=== PATIENT | female | born 1960 | race Caucasian/White ===

== ENCOUNTER 2018-05-30 10:04 | Observation (INO) | payer OTHER, SELFPAY ==
[2018-05-30] VITALS (14 sets, daily range): BP systolic 106–133; BP diastolic 59–76; PULSE 64–88; RESP 9–20; TEMP 36.2–36.9; O2SAT 91–99; BMI 20.2
--- NOTE | 2018-05-30 | PATH_ITS ---
[facility] Accession Number: [id number] . 01 Material submitted: . APPENDIX . 02 Diagnosis: Appendix, Appendectomy: Acute appendicitis with serositis. No evidence of neoplasia. V/06/03/2018 . 02 Electronically signed: . Mariza Davies MD, Pathologist NPI- [id number] . 01 Gross description: . Received in formalin is an intact appendix (length - 8.5 cm, diameter - up to 1.0 cm) with hudson, smooth, shiny, focally eroded serosa with attached mesoappendix (up to 1.2 cm in depth). The resection margin is received stapled. The lumen contains romo, solid, soft material. The wall is up to 0.2 cm thick. No nodules, masses or lesions are identified. The resection margin is inked black. Section code: (A1) resection margin en face and three additional serial sections; (A2) one-half of the bivalved tip. ([id number]) . /OZO . 02 Pathologist provided ICD-10: K35.80 . 02 CPT . 009894 Performed at: 01 [facility] [address], [place], [place] [id number] MD Lucas Salazar MD Phone: [phone] Performed at: 02 [facility] [address] [place], [place] [id number] MD Timo Brunner MD Phone: [phone]
--- NOTE | 2018-05-30 10:18 | PM.HP.1 ---
History of Present Illness Date Patient Seen: 05/30/18 Chief complaint: ACUTE APPENDECITIS Narrative: 57 you female transferred from [facility] with approximately 24 hour history of abdominal pain. Dr. Jairon Moctezuma called me at approximately 9:[address] scan showed dilated appendix, no perforation and fecalith with WBC per report of approximately 11k. She reports nausea and emesis. No blood in stool. She is otherwise healthy with h/o traumatic ptx from horse kick. 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 Lives alone with her 2 Danish shepherds on [facility]. She is very healthy, has no heart or vascular disease, walks everyday. Takes no meds except MVI daily. Patient History Family & Social History Family History: Reviewed 05/30/18 by Samy Salazar MD Review of Systems Review of Systems All systems reviewed & are unremarkable except as noted in HPI and below Exam Const General: cooperative, healthy appearing, comfortable, well developed and well groomed Nutritional Appearance: average body habitus, well nourished and thin HENMT Head: normal to inspection Ears: hearing grossly normal bilaterally Nose: external nose normal Face and sinus: normal facial exam Eyes General: appearance normal, both eyes and all related structures Sclera: sclerae normal Neck Neck: normal visual inspection Carotids: no bruits Chest Chest: normal inspection of the chest Resp Effort & Inspection: normal respiratory effort, able to speak in complete sentences, no audible wheezes and symmetric chest movement Auscultation: breath sounds present, no bronchial breath sounds, no rales, no rhonchi, no wheezes and no rubs Tactile Fremitus: tactile fremitus absent Cardio Rate: regular rate Heart Sounds: S1 normal, S2 normal, no click, no murmurs and no rubs GI Inspection: normal to inspection Percussion: abnormal to percussion (Pain to percussion in RLQ, Pain to percussino in RLQ with percussion on Left side. Tenderness to light palpation in RLQ none everywhere else, + focal peritoneal findings c/w appendicitis.) Other: deffered Back/Spine/Pelvis Back: normal to inspection Skin General: no rashes or lesions noted Neuro General: alert, awake and oriented x3 Cognition: normal cognition Speech: speech normal Motor: muscle tone normal throughout Extrem General: normal to inspection Right upper extremity: normal to inspection Left upper extremity: normal to inspection Right lower extremity: normal to inspection Left lower extremity: normal to inspection Psych Appearance: grossly normal Mental Status: mental status grossly normal Speech and Movement: speech and movement normal Mood: congruent mood Affect: normal affect Attitude: cooperative Thought Process: normal Thought Content: normal Judgment: judgment good Objective Imaging CT scan - abdomen: My impression: CT shows appendicolith >1cm multiple with fat stranding and enlarged appendix. Minimal if any free fluid. Radiologist's impression: T ABDOMEN PELVIS WO CONTRAST Clinical: RLQ Pain Comparison: None Procedure: Multislice CT imaging was performed. Exam was performed within [address] was performed with dose optimization techniques to lessen patient radiation exposure. Findings: ABDOMEN: Lung bases clear. Within limits noncontrast CT liver, spleen, pancreas, kidneys and adrenal glands normal. No abnormal gallbladder, bile duct, small bowel or aortic dilation. No upper abdominal free fluid. PELVIS: Appendix arises posteriorly at the cecal tip, proximal to mid appendix not distended. Appendix then courses retrocecally cephalad. Mid appendix to tip abnormally distended, 1.3 cm with multiple appendicoliths present, largest 1.3 cm maximum dimension. Mild adjacent fat stranding without focal fluid to indicate abscess. No dependent free fluid. Uterus size normal. No adnexal abnormalities. Bladder normal. Mildly abundant stool throughout colon without abnormal distention. No acute bone abnormality IMPRESSION: Acute appendicitis without abscess. Findings discussed with Dr. Moctezuma at 05/30/2018 9:02 AM Electronically signed by: Steve Agrawal MD 05/30/2018 9:02 AM, [facility]. Labs Labs: WBC 11k Otherwise overall normal, Assessment & Plan (1) Acute appendicitis with localized peritonitis: Current visit: Yes Status: Acute Plan: Assessment/Plan Narrative: The patient has acute appendicitis without perforation or localized abscess. I discussed extensively with diagrams drawn the back of the paper consent form a copy of which was provided to the patient if she signed and dated the laparoscopic approach. She understands the appendix will be stapled off with permanent titanium asael. We discussed the risks and benefits of the operation including injury to the cecum injury to the ureter injury to the small intestine or terminal ileum as well as injury to the aorta or great vessels ventral hernia infection open operation possible bowel or colon resection possible colostomy and others she wishes to proceed. The patient understands the intended to remove the appendix but other operations may being indicated. The patient signed her informed consent with me present and understands we will proceed to the operating room as soon as an operating room is available approximately 2 hr from now. Patient will remain overnight and will be discharged when ready likely tomorrow. All questions were answered thank you for the opportunity to participate in the care of this delightful patient. Time Spent With Patient Time with patient: Greater than 35 minutes
[2018-05-30] MEDS: LACTATED RINGERS 1,000 ML 125 ML IV ×3 (11:17→23:58)
[2018-05-30] MEDS: HYDROMORPHONE 2 MG INJ 1 MG IV (12:00)
--- NOTE | 2018-05-30 13:59 | PC.NURSE ---
Pt admitted from [facility] with diagnosis of appendicitus. Admitted and taken to OR at 1330. Given dilaudid 0.5 mg IV at noon.
[2018-05-30] MEDS: PIPERACILLIN-TAZO 3.375 GM/50 ML FROZ.PIGGY IV (14:10)
--- NOTE | 2018-05-30 14:12 | P.OP_ITS ---
Operative Date/Time/Diagnoses Date of procedure: 05/30/18 Time of procedure: 15:33 Pre-op diagnosis: Acute appendicitis Post-op diagnosis: same Procedure & Clinicians Procedure: Laparoscopic appendectomy Same procedure as scheduled: Yes Indications: Acute appendicitis Surgeon: Samy Salazar Click Yes if Unassisted: Yes Anesthesia Type: General Operative Notes Findings: Non- perforated appendicitis with large fecaliths. Closure Type: primary Specimen(s): other (Appendix to pathology) Implants & Drains: NONE Estimated Blood Loss (mL): 5 Blood products transfused: none Procedure in detail: After informed consent was obtained related to the risks and benefits of laparoscopic or open appendectomy including infection bleeding abdominal hernia injury to cecum small intestine great vessels ureter bladder or other intra-abdominal organs appendiceal stump leak possible colectomy or colostomy and the patient was taken to the operating room after receiving IV antibiotics and SCDs were placed General endotracheal anesthesia was performed. Her left arm was tucked she was secured to the table with both tape and straps and prepped and draped in usual sterile fashion. Safety time-out was completed. A small transverse incision was made at the right lateral abdominal wall and a 5 mm trocar was placed in visualizing fashion into the abdominal wall however I did not feel I was in the peritoneum and therefor chose to enter via Sonia technique at the umbilicus. I then made a curvilinera infraumbilical incision without injury to the intra-abdominal contents, made a small fasiotomy and placed stay sutures of 0-Vicryl on either side and placed a 12 trocar into the peritoneum and insufflated. The 5mm trocar was clearly in the peritoneum and no injury had occurred. Immediate 4 quadrant laparoscopy was performed showing no evidence of intra-abdominal injury or bleeding in the retroperitoneum, no hemaotoma was seen along the colonic mesentery now or after the completion of the appendectomy. A 5 mm trocar was placed in the suprapubic region. Patient was placed in the left lateral decubitus position with slight Trendelenburg. Small bowel was swept gently out of the way and the Right colon was clearly seen to be adhesed to the anterior abdominal wall, however the cecum was free and the base of the appendix was clearly not inflamed. Turbid fluid was seen in the pelvis. The distal appendix was adhered to the lateral posterior appendix. Using cautery and blunt dissection I divided the peritoneal and retroperitoneal attachments to the appendix and mesoappendix and freed the mesoappendix where it was adhered to the base of the cecum to allow a staple firing. The appendix was visualized clearly inflamed. Angelo's veil was identified the appendix was mobilized and the mesoappendix was identified and a window at the base of the appendix was created allowing us to place a white load of the of the echelon 45 mm stapler across the mesoappendix and fired this was clearly only across the mesoappendix and no other structures were seen-this required 2 loads. The base of the appendix was now clearly seen and across healthy tissue a blue load echelon stapler was now fired freeing the appendix from the base of the cecum. Appendix was placed in retrieval bag. The abdomen was now irrigated at the right lower quadrant and inspected for bleeding none was seen. The retroperitoneum was inspected and the colonic mesentery and small intestinal mesenteric leaves were normal. Gallbladder was seen and normal. The patient was now flattened the retrieval bag was removed and using a suture Passer needle the 12 mm trocar site was closed with an 0 Vicryl figure- of-eight suture-stay sutures closed over top. Desufflation was performed and all the trocars removed under direct vision. Deep subcutaneous tissue closed with 4-0 monofilament and the skin was closed with 4 0 monofilament suture. Complications: none Condition: stable Disposition: PACU
--- NOTE | 2018-05-30 14:16 | PM.DS.1 ---
History of Present Illness Chief complaint: ACUTE APPENDECITIS Narrative: 57 you female transferred from [facility] with approximately 24 hour history of abdominal pain. Dr. Jairon Moctezuma called me at approximately 9:[address] scan showed dilated appendix, no perforation and fecalith with WBC per report of approximately 11k. She reports nausea and emesis. No blood in stool. She is otherwise healthy with h/o traumatic ptx from horse kick. 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 Lives alone with her 2 Tong[place] shepherds on [facility]. She is very healthy, has no heart or vascular disease, walks everyday. Takes no meds except MVI daily. Discharge Providers Date of admission: 05/30/18 10:04 Primary care physician: Gabo retired, referred to Dr. Hai Cooper MD Consults: None Discharge provider: Samy Salazar MD Discharge Date: 05/31/18 Summary Discharge Diagnosis: Acute appendicitis Hospital Course: Patient was admitted on the 30 of May was taken to the operating room at approximately 2:30 p.m. where a laparoscopic appendectomy was performed she was admitted overnight for observation and pain control after tolerating liquids and a light diet was discharged on the 31 of May doing well. Incisions were CDI, no evidence of erythema or infection. No drainage. She was feeling much better with abdomnal soreness. Status at Discharge Cognitive/behavioral status at discharge: Normal Functional status at discharge: independent ambulation Overall status at discharge: patient is back to baseline Time Spent with Patient Less than 30 minutes Time spent discussing smoking cessation with patient: 3 to 10 minutes Exam Vital Signs (past 8 hours): - 05/30/18 10:55 Temperature 97.8 F Pulse Rate 64 Respiratory Rate 20 Blood Pressure 112/69 Pulse Oximetry 98 Narrative Exam Narrative: Patient is a pleasant 57-year-old female alert and oriented x3 interactive. Abdomen is soft mildly tender, incisions are clean dry and intact Extremities are warm well perfused no evidence of cyanosis clubbing or edema. Objective Labs Result Diagrams: 05/30/18 17:30 Discharge Plan Discharge Plan Patient Disposition: Home, Self-Care Discharge Med Rec/Prescriptions Prescriptions: New hydromorphone 2 mg tablet 2 mg PO Q4H PRN (Reason: pain) Qty: 30 RF: 0 No Action No Known Home Medications RF: 0 Provider Discharge Instructions Diet: Diet as Tolerated Diet comment: Regular Activity: ad kamila Skin/Wound/Dressing Care Skin care: OK to shower, no need to keep incisions dry. Do not swim or bath 2 weeks. Report to your healthcare provider any signs of infection, such as:: chills, fever, night sweats, increased pain and unusual drainage Dressing: skin glue, may remove in 7-10 d Visit Report/Discharge Packet Instructions: DI for an Appendectomy, DI for Laparoscopy, Appendectomy -- Laparoscopic Surgery Print Language: Marshallese Discharge Data Attending Provider: Samy Salazar Admit Date/Time: 05/30/18 10:04 Quality VTE Deep Vein Thrombosis/Pulmonary Embolism Present on Admission: No
--- NOTE | 2018-05-30 14:20 | P.DS_ITS ---
History of Present Illness Chief complaint: ACUTE APPENDECITIS Narrative: 57 you female transferred from [facility] with approximately 24 hour history of abdominal pain. Dr. Jairon Moctezuma called me at approximately 9: [address] scan showed dilated appendix, no perforation and fecalith with WBC per report of approximately 11k. She reports nausea and emesis. No blood in stool. She is otherwise healthy with h/o traumatic ptx from horse kick. 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 Lives alone with her 2 Vincentian shepherds on [facility]. She is very healthy, has no heart or vascular disease, walks everyday. Takes no meds except MVI daily. Discharge Providers Date of admission: 05/30/18 10:04 Primary care physician: Gabo retired, referred to Dr. Hai Cooper MD Consults: None Discharge provider: Samy Salaazr MD Discharge Date: 05/31/18 Summary Discharge Diagnosis: Acute appendicitis Hospital Course: Patient was admitted on the 30 of May was taken to the operating room at approximately 2:30 p.m. where a laparoscopic appendectomy was performed she was admitted overnight for observation and pain control after tolerating liquids and a light diet was discharged on the 31 of May doing well. Incisions were CDI, no evidence of erythema or infection. No drainage. She was feeling much better with abdomnal soreness. Status at Discharge Cognitive/behavioral status at discharge: Normal Functional status at discharge: independent ambulation Overall status at discharge: patient is back to baseline Time Spent with Patient Less than 30 minutes Time spent discussing smoking cessation with patient: 3 to 10 minutes Exam Vital Signs (past 8 hours): - 05/30/18 10:55 Temperature 97.8 F Pulse Rate 64 Respiratory Rate 20 Blood Pressure 112/69 Pulse Oximetry 98 Narrative Exam Narrative: Patient is a pleasant 57-year-old female alert and oriented x3 interactive. Abdomen is soft mildly tender, incisions are clean dry and intact Extremities are warm well perfused no evidence of cyanosis clubbing or edema. Objective Labs Result Diagrams: 05/30/18 17:30 Discharge Plan Discharge Plan Patient Disposition: Home, Self-Care Discharge Med Rec/Prescriptions Prescriptions: New hydromorphone 2 mg tablet 2 mg PO Q4H PRN (Reason: pain) Qty: 30 RF: 0 No Action No Known Home Medications RF: 0 Provider Discharge Instructions Diet: Diet as Tolerated Diet comment: Regular Activity: ad akmila Skin/Wound/Dressing Care Skin care: OK to shower, no need to keep incisions dry. Do not swim or bath 2 weeks. Report to your healthcare provider any signs of infection, such as:: chills, fever, night sweats, increased pain and unusual drainage Dressing: skin glue, may remove in 7-10 d Visit Report/Discharge Packet Instructions: DI for an Appendectomy, DI for Laparoscopy, Appendectomy -- Laparoscopic Surgery Print Language: Citizen Of [place] Discharge Data Attending Provider: Samy aSlazar Admit Date/Time: 05/30/18 10:04 Quality VTE Deep Vein Thrombosis/Pulmonary Embolism Present on Admission: No
--- NOTE | 2018-05-30 14:36 | SUR.OPER ---
Supine on padded OR bed, head on pillow, arms secured on padded arm boards at <90 degrees abduction, legs uncrossed, safety belt at thigh, tape over blanket over lower legs.
[2018-05-30] MEDS: BUPIVACAINE 0.25% W/ EPI VIAL 30 ML INJ (14:50)
--- NOTE | 2018-05-30 14:58 | SUR.OPER ---
Supine on padded OR bed, head on pillow, arm padded and tucked at left side, right arm at 90 degrees on padded armboard, legs uncrossed, safety belt at thigh, tape over blanket over lower legs .
[2018-05-30] MEDS: LACTATED RINGERS 1,000 ML 42 ML IV (15:00)
--- NOTE | 2018-05-30 16:03 | SUR.PHASEI ---
Report called to CRYSTAL Nelson. abd soft, flat. Surgical sites ROCKY, CDI x3. Tolerating ice chips.
--- NOTE | 2018-05-30 16:18 | SUR.PHASEI ---
Transferred to the floor. Report to Leslie. VS stable. Surgical sites peeled potato inspector/cdi x3. Pt reported tenderness to left of umbilicus, RN aware. Glasses with patient. IV saline locked.
--- NOTE | 2018-05-30 17:43 | PC.NURSE ---
Addendum entered by Nicky Stewart R.N. 05/30/18 18:30: 3 lapsites open to air with dermabond applied. Original Note: Shift note Pt arrived on unit from PACU at 1610. Pt AOX3. Pleasant/ cooperative. Pain reported 3/10, refused PRN pain medication at this time. 97% on RA. LS clear. 3lap sites on abdomen open to air. No drainage noted. Bowel sounds hypoactive. Pt oriented to room. Call light in hand.
[2018-05-30 18:16] LABS: Hematocrit 38.1 % (36-46)
--- NOTE | 2018-05-30 18:30 | PC.NURSE ---
This RN agrees with notes and assessments done on this patient this shift by orienting nurse. patient is resting in bed at this time and has been encouraged to call when she needs to void. call light in reach. ba active. will continue to monitor.
[2018-05-30] MEDS: ACETAMINOPHEN 325 MG TABLET 650 MG PO (21:00)
--- NOTE | 2018-05-31 00:05 | PC.NURSE ---
Addendum entered by Isabel Mendoza R.N. 05/31/18 05:10: Has slept at intervals. States generalized abdominal pain is 1/10 with intermittent spikes of cramping pain in RLQ relieved by splinting area. Warm blanket applied to abdomen but declines offer of pain medication. Original Note: Alert and oriented. Breath sounds CTA with RA sat of 99% but taking shallow breaths; discussed importance of CDB when awake to prevent post op complications as well as instructing in splinting of incision. On continuous pulse oximetry. Denies nausea but states she has been belching. BT present but denies flatus. Up to bathroom with SBA and denies dysuria, frequency, urgency or incontinence. Independent with bed mobility. Lap incisions to abdomen dermabonded without signs of drainage/infection. Abdomen is soft but tender. Wearing bilateral SCD's. Fall risk score is low but requested patient call for assist when getting out of bed and she verbalizes understanding.
[2018-05-31 05:28] VITALS: BP 106/52; PULSE 62; RESP 16; TEMP 37; O2SAT 98
[2018-05-31 08:00] VITALS: BP 104/65; PULSE 70; RESP 18; TEMP 37.3; O2SAT 99
[2018-05-31] MEDS: KETOROLAC 15 MG/ML VIAL IV (09:12)
[2018-05-31 13:15] VITALS: O2SAT 100
--- NOTE | 2018-05-31 13:20 | CM.IDA ---
See Assessment below. Home today w/no barriers to safe DC home. NAVDEEP Garcia Discharge Planning/Care Management CM Discharge Assessment Start: 05/31/18 13:14 Freq: Status: Active Protocol: Document 05/31/18 13:15 ELMER (Rec: 05/31/18 13:20 ELMER [id number]) Discharge Planning Assessment Assigned Director Of Financial Reporting ELMER Advance Directives? No Advance Directives on File No History Provided By Patient Has Patient been admitted in last 30 No days? Prior Living Arrangements House Household Members none Type of transporation used prior to Drives own vehicle admit Independent with ADL's Yes Is patient alert and oriented? Yes Comment Independent Caregiver for Another No Barriers to Discharge No Discharge Plan Home Transportation Arrangement Friend to transport to [facility] and then home Referrals Initiated None needed Additional Comment Patient concerned about [place]. This CABIN OUTFITTER assisted by walking Rx [facility], with pt's permission , and dropped off Rx and pt's facesheet. Pt and friend will pick it up before they leave. Whiteboard Updated in Patient Room with Yes name and ext. # of Director Of Financial Reporting
--- NOTE | 2018-05-31 13:24 | PC.NURSE ---
Pt showered. IV removed and pt given discharge information and script. Taken by wheelchair to front entrance with friend. Pt has been discharged.
== END 2018-05-31 13:25 | disposition home or self-care (01) ==
PROVIDERS: Admitting Provider Surgery; Visit Provider Surgery
PROC: 0DTJ4ZZ Resection of Appendix, Percutaneous Endoscopic Approach (ICD-10-PCS; CPT 44970; principal; 2018-05-30 14:45)
DX: K35.80 Unspecified acute appendicitis (principal); K38.1 Appendicular concretions; K66.0 Peritoneal adhesions (postprocedural) (postinfection)
CPT/HCPCS: 44970; 85014; 94762; 99220; G0378; G0379; J1100; J1170; J1885; J2250; J2405; J2543; J2704; J3010